=== PATIENT | female | born 1935 | race Caucasian/White ===

== ENCOUNTER 2019-02-10 10:44 | Outpatient (CLI) | payer MEDICARE | END 2019-02-10 10:45 | disposition home or self-care (01) | PROVIDERS: ATTEND Family Medicine | DX: R13.11 Dysphagia, oral phase (principal); K21.9 Gastro-esophageal reflux disease without esophagitis | CPT/HCPCS: 74230 ==

== ENCOUNTER 2019-04-17 13:15 | Outpatient (CLI) | payer MEDICARE ==
--- NOTE | 2019-04-17 14:00 | BD ---
DEXA bone density scan: 04/17/2019 COMPARISON: None HISTORY: Postmenopausal female undergoing screening for osteoporosis. Lumbar Spine: BMD (g/cm2) T-SCORE L1 0.913 -0.7 L2 0.946 -0.7 L3 0.996 -0.8 L4 0.926 -1.2 L1-L4 0.943 -0.9 Femoral Neck: 0.584 -2.4 Total Femur: 0.759 -1.5 The FRAX-WHO fracture risk assessment tool reports a 10 year fracture risk in an untreated patient at 33% for major osteoporotic fracture and 24% for hip fracture. IMPRESSION: Normal lumbar spine bone mineral density. Femoral neck osteopenia, correlating with a moderately incr eased risk for fracture as detailed above. Transcribed Date/Time: 04/17/2019 3:27 PM
== END 2019-04-17 13:16 | disposition home or self-care (01) ==
LOC: BICMAMMO 13:15
PROVIDERS: ATTEND Family Medicine
DX: Z13.820 Encounter for screening for osteoporosis (principal); M85.859 Other specified disorders of bone density and structure, unspecified thigh
CPT/HCPCS: 77080

== ENCOUNTER 2019-07-08 08:50 | Outpatient (CLI) | payer MEDICARE ==
--- NOTE | 2019-07-09 15:44 | RAD ---
Modified barium swallow: 07/08/2019 COMPARISON: None HISTORY: Oropharyngeal phase dysphagia, gastroesophageal reflux FINDINGS: A modified barium swallow was performed by a member of the [facility] of speech pathology. I mages from that study are provided for interpretation. Premature spill into the vallecula and piriform sinuses noted. No penetration or aspiration was noted . IMPRESSION: No penetration or aspiration was noted on this examination. Premature spill into the vall ecula and piriform sinuses noted. Please see speech pathologist report for full detail and recommendations
== END 2019-07-08 08:51 | disposition home or self-care (01) ==
PROVIDERS: ATTEND Internal Medicine Gastroenterology
DX: R13.12 Dysphagia, oropharyngeal phase (principal); K21.9 Gastro-esophageal reflux disease without esophagitis
CPT/HCPCS: 74230

== ENCOUNTER 2020-02-23 13:24 | Outpatient (CLI) | payer MEDICARE ==
--- NOTE | 2020-02-23 13:51 | RAD ---
Exam: Lumbar spine 5 views HISTORY: Pain. FINDINGS: AP, left oblique, right oblique, lateral and spot view of the lumbosacral junction demonstr ate 5 lumbar type vertebral bodies. Mild rightward curvature of the lumbar spine, apex at the L3 level. 1.4 mm of retrolisthesis of L3 upon L4. No spondylolysis. Vacuum disc phenomenon with moderate to severe loss of disc space height at L2-L3. Moderate severe lo ss of disc space height and osteophyte formation at L1-L2. Visualized sacrum and bony pelvis do not demonstrate any significant degenerative change. IMPRESSION: Degenerative changes at L1-L2 and L2-L3. MRI if clinically warranted.
== END 2020-02-23 13:25 | disposition home or self-care (01) ==
LOC: SCSRAD 13:24
PROVIDERS: ATTEND Physician Assistant
DX: M54.5 Low back pain (principal); M47.816 Spondylosis without myelopathy or radiculopathy, lumbar region
CPT/HCPCS: 72120

== ENCOUNTER 2022-04-06 09:32 | Outpatient (CLI) | payer MEDICARE, OTHER | END 2022-04-06 09:33 | disposition home or self-care (01) | LOC: SCSRAD 09:32 | PROVIDERS: ATTEND Internal Medicine Rheumatology | DX: M54.2 Cervicalgia (principal); M54.50 Low back pain, unspecified; M47.816 Spondylosis without myelopathy or radiculopathy, lumbar region; M47.812 Spondylosis without myelopathy or radiculopathy, cervical region | CPT/HCPCS: 72052; 72110 ==

== ENCOUNTER 2022-09-27 09:14 | Outpatient (CLI) | payer MEDICARE, OTHER | END 2022-09-27 09:15 | disposition home or self-care (01) | LOC: SCSRAD 09:14 | PROVIDERS: ATTEND Family Medicine | DX: R05.3 Chronic cough (principal) | CPT/HCPCS: 71046 ==

== ENCOUNTER 2024-01-09 10:47 | Outpatient (CLI) | payer MEDICARE | END 2024-01-09 10:48 | disposition home or self-care (01) | LOC: RAD 10:47 | PROVIDERS: ATTEND Internal Medicine Gastroenterology | DX: R13.12 Dysphagia, oropharyngeal phase (principal); K59.00 Constipation, unspecified; K21.00 Gastro-esophageal reflux disease with esophagitis, without bleeding | CPT/HCPCS: 74230 ==

== ENCOUNTER 2025-06-24 08:32 | Outpatient (CLI) | payer MEDICARE ==
[2025-06-24 09:41] LABS: Estimated GFR - POC 71.0
== END 2025-06-24 08:33 | disposition home or self-care (01) ==
LOC: SCSMRI 08:32
PROVIDERS: ATTEND Physician Assistant Medical
DX: R93.5 Abnormal findings on diagnostic imaging of other abdominal regions, including retroperitoneum (principal); N28.1 Cyst of kidney, acquired
CPT/HCPCS: 36415; 74183; 82565